=== PATIENT | female | born 1995 | race Two or more races ===

== ENCOUNTER 2021-05-19 19:06 | Emergency (ER) | payer OTHER ==
[~2021-05-19] VITALS: Ht 157.5 cm; Wt 59.4 kg
[2021-05-19] MEDS ORDERED: PRENA1 TRUE CO1 EACH (19:44)
== END 2021-05-19 23:37 | disposition home or self-care (01) ==
LOC: ER 19:06
DX: O20.9 Hemorrhage in early pregnancy, unspecified (principal)